=== PATIENT | female | born 1950 | race African-American/Black ===

== ENCOUNTER 2018-07-08 19:04 | Inpatient (IN) | payer OTHER ==
[~2018-07-08] VITALS: Ht 167.6 cm; Wt 86.0 kg
[2018-07-08 19:04] VITALS: BP 211/100
[~2018-07-08 19:04] MED LIST: ASPIRIN325 PO; B-COMPLEX-VITA1 EACH PO; BENZONATATE100 MG PO; CALCIUM OYSTER500 MG PO; FISH OIL 1,0001 EAC5 PO; HORMONE PATCH; LISINOPRIL20 MG PO; LISINOPRIL40 MG PO; OSELB75 PO; PREDNISONE 20 M20 M1 PO; PRILOSEC 20 MG20 MG PO; T3; TUSSIONEX PENN473 ML PO; TYLENOL COLD C1 EAC1; VALIUM2 MG PO; VITAMIN B-12250 MCG PO; VITAMIN C120 GM PO; VITAMIN D 5050000 I1; ZANTAC 150MG T150 M1 PO; [UNRECOGNIZED DRUG - OTHER] PO
[2018-07-08 19:55] LABS: ABSOLUTE NEUTROPHILS 1.9 thou/uL (1.4-8.2); BASOPHILS 0.7 % (0.0-2.0); EOSINOPHILS 2.5 % (0.0-3.0); HEMATOCRIT 38.7 % (37.0-47.0); HEMOGLOBIN 13.2 gm/dL (12.0-15.0); LYMPHOCYTES 50.6 % (24.0-44.0); MCH 33.2 pg (26.0-34.0); MCHC 34.2 g/dL (28.0-37.0); MCV 97.2 fL (80.0-100.0); PLATELET COUNT 171 thou/uL (150-400); POLYS 38.2 % (36.0-66.0); RBC 3.98 mil/uL (4.20-5.00); RDW 14.3 % (10.5-14.5); WBC 5.1 thou/uL (4.0-11.0)
[2018-07-08 19:59] LABS: ANION GAP 11 mmol/L (7-16); BUN 12 mg/dL (7-18); CALCIUM 9.2 mg/dL (8.5-10.1); CHLORIDE 105 mmol/L (98-107); CO2 26 mmol/L (21-32); CREATININE 0.9 mg/dL (0.6-1.0); GLUCOSE 95 mg/dL (74-106); POTASSIUM 3.9 mmol/L (3.5-5.1); SODIUM 142 mmol/L (136-145)
[2018-07-08 20:04] LABS: MAGNESIUM 1.9 mg/dL (1.8-2.4); SGOT 22 U/L (15-37); SGPT 24 U/L (30-65); TOTAL BILIRUBIN 0.5 mg/dL (<0.1-1.0); TOTAL PROTEIN 7.8 g/dL (6.4-8.2); TROPONIN-I <0.06 ng/mL (<0.06)
[2018-07-08 20:31] VITALS: BP 192/94
[2018-07-08 21:20] LABS: URINE BILIRUBIN NEGATIVE (Negative); URINE BLOOD TRACE (Negative); URINE CLARITY CLEAR; URINE COLOR YELLOW; URINE GLUCOSE-RANDOM* NEGATIVE (Negative); URINE KETONES TRACE (Negative); URINE LEUKOCYTES-REFLEX NEGATIVE (Negative); URINE NITRITE-REFLEX NEGATIVE (Negative); URINE PROTEIN (DIPSTICK) NEGATIVE (Negative); URINE UROBILINOGEN 0.2 E.U./dl (0.2-1.0)
[2018-07-08 21:28] VITALS: BP 192/94
[2018-07-08 21:46] VITALS: BP 190/88
[2018-07-08] MEDS ORDERED: PREDNISONE 20 M20 MG PO (22:00)
[2018-07-08] MEDS ORDERED: PRINIVIL5 MG PO (22:01)
[2018-07-08] MEDS ORDERED: ZYRTEC10 MG PO (22:02)
[2018-07-08] MEDS ORDERED: ESTRADIOL 1 MG T1 M1 TRANSDERM (22:05)
[2018-07-08] MEDS ORDERED: MEDROXYPROGESTER5 MG PO (22:06)
[2018-07-08] MEDS ORDERED: VENTOLIN HFA 1818 GM INH (22:09)
[2018-07-08] MEDS ORDERED: CARDIO OMEGA B1 EACH PO (22:11)
[2018-07-09] VITALS (7 sets, daily range): BP systolic 107–170; BP diastolic 33–90
--- NOTE | 2018-07-09 01:07 | NUR ---
PT CAME TO THE DESK REGARDING PTS C/O NAUSEA AND NEEDING TO USE THE RESTROOM. UPON APPROACH PT REPORTED FEELING NAUSEATED. SHE STATES SHE FELT THE NAUSEA, THEN FELT WARM AND FLUSHED/HOT. SHE THEN NOTICED THAT THE RIGHT SIDE OF HER FACE WAS TINGLING THAT EXTENDED INTO BOTH HER LIPS. ALSO THAT THERE WAS TINGLING DOWN BOTH ARMS ALL THE WAY DOWN TO THE FINGERS. ZOFRAN WAS GIVEN. PT WAS ABLE TO GET OUT OF BED WITH ONLY STANDBY ASSIST TO THE BATHROOM. SHE DENIED ANY DIZZINESS OR LIGHTHEADEDNESS WHEN UP. GAIT WAS STEADY. ZOFRAN IV WAS GIVEN PRIOR TO GETTING OUT OF BED. PT REPORTED ON THE WAY BACK TO BED THAT THE TINGLING IN HER ARMS WAS SUBSIDING AND THAT SHE ONLY HAD AN "ITCHING" IN BOTH HANDS. ALSO, THE TINGLING HAD CEASED IN HER LIPS AND WAS ISOLATED TO THE RIGHT SIDE OF HER FACE. PERHAPS COINCIDENTALLY, PT REPORTS THAT THE NAUSEA WAS SUBSIDING AT THE SAME TIME.
--- NOTE | 2018-07-09 04:49 | NUR ---
PT ARRIVED VIA BED FROM ER. PT UP OFF CART, AMBULATED WITH STEADY GAIT TO THE BED WITH STANDBY ASSIST. PT REPORTING "PRESSURE" ON THE RIGHT SIDE OF HER FACE AND DOWN THE RIGHT SIDE OF THE NECK. THIS AM, PT REPORTING THIS PRESSURE 4/10.
[2018-07-09 04:50] LABS: HEMATOCRIT 36.5 % (37.0-47.0); MCH 32.1 pg (26.0-34.0); MCHC 32.9 g/dL (28.0-37.0); MCV 97.8 fL (80.0-100.0); RBC 3.74 mil/uL (4.20-5.00); RDW 14.1 % (10.5-14.5); WBC 4.4 thou/uL (4.0-11.0)
[2018-07-09 04:51] LABS: ANION GAP 8 mmol/L (7-16); BUN 12 mg/dL (7-18); CALCIUM 8.8 mg/dL (8.5-10.1); CHLORIDE 106 mmol/L (98-107); CHOLESTEROL 249 mg/dL (<200); CO2 26 mmol/L (21-32); CREATININE 0.9 mg/dL (0.6-1.0); GLUCOSE 83 mg/dL (74-106); HDL CHOLESTEROL 65 mg/dL (>40); LDL CHOLESTEROL 179 mg/dL (<100); POTASSIUM 3.9 mmol/L (3.5-5.1); SODIUM 140 mmol/L (136-145); TC:HDL 3.8 Ratio (Not establshd); TRIGLYCERIDE 27 mg/dL (<150); VLDL 5 mg/dL (<40)
[2018-07-09 04:54] LABS: SERUM ASSESSMENT Clear
--- NOTE | 2018-07-09 08:30 | EKG ---
[place] [address] [facility] [place] [address] ELECTROCARDIOGRAM REPORT Name: LETHA LEÓN Room #: 359-P ADM IN M.R.#: [id number] ������������������ Admission: 07/08/18 ������������������ Attend Phys: Valentino Dumas MD Discharge: ������������������ Date of : 48 Report #: [id number] ����������������������������������������������������������������� [id number] THIS REPORT FOR: //name// [facility] ED Test Date: 2018-07-08 Test Time: 19:52:34 Pat Name: LETHA LEÓN Department: Room: 359 Gender: F Fruit Inspector: claire : 1950 Requested By: Gee Marin Order Number: [id number] MD: Papo Rodgers Measurements Intervals [facility] Rate: 65 P: 37 [place]: 163 QRS: -2 QRSD: 93 T: 25 QT: 470 QTc: 489 Interpretive Statements Sinus rhythm Borderline prolonged QT interval Compared to ECG 08/04/2012 03:43:35 No significant changes Electronically Signed On 07-09-2018 8:29:50 [employer] by Papo Rodgers [email or web address] ��������������������������������������������� <ELECTRONICALLY SIGNED> ���������������������������������������� By: Papo Rodgers MD, [facility] ��������������������������������������������� 07/09/18828 51 51 Papo Rodgers MD, FACC /EPI
[2018-07-09] MEDS ORDERED: ASPIR 8181 MG PO (09:53)
--- NOTE | 2018-07-09 12:13 | NUR ---
ASSESSMENT: CM REVIEWED CHART AND MET WITH PATIENT AT THE BEDSIDE. PT IS ALERT AND ORIENTED X4. PT LIVES AT HOME WITH HER IN A HOUSE. PT REPORTS ONE STEP TO ENTER THE HOME AND ABOUT 14 STEPS WITH HANDRAILS TO HER BEDROOM. PT REPORTS SHE IS FULLY INDEPENDENT WITH ADLS AND AMBULATION. PT HAS NOT HAD HH IN THE PAST NOR BEEN TO SNF/REHAB. CM DISCUSSED ROLE. PT IS LIKELY DISCHARGE TODAY AND REPORTS HAVING NO NEEDS.
--- NOTE | 2018-07-09 15:00 | NUR ---
Assumed care of patient at 0700. Vitals have been stable today. Denies pain. Still feels some "pressure" to right side of face, but states has improved since admission and has been improving throughout the day. Denies any numbness. No other signs and symptoms throughout day. NIH 0. Alert and oriented x4. Pleasant. Carotids and MRI head ordered today - appear negative. Attempted to get ahold of Dr. Barbosa to notify of results but no response. Dr. Guerra ordered Echo and MRA [place] [facility] [place]. Up with SBA. Fall precautions in place. Bilateral SCDs while in bed. Spouse at bedside, kept up to date on POC. Progressing towards POC. Will continue to monitor.
[2018-07-10 00:33] LABS: GLYCOHEMOGLOBIN (HGB A1C) 5.3 % (4.8-5.6)
[2018-07-10 03:45] VITALS: BP 116/74
--- NOTE | 2018-07-10 04:12 | NUR ---
Pt. slept fair during the night. No change in neuro status and NIH = 0. Mild right sided facial pressure/discomfort which she stated has gotten better. Up ad trena in room with steady gait. BP stable. Will continue to monitor.
[2018-07-10 07:00] VITALS: BP 119/79
[2018-07-10 10:28] VITALS: BP 119/79
[2018-07-10] MEDS ORDERED: LIPITOR 20 MG T20 M1 PO (15:28)
--- NOTE | 2018-07-10 16:06 | NUR ---
Assumed care of patient at 0700. Vitals have been stable. Alert and oriented x4. Still with some slight right facial "pressure" but patient reports continue to improve. No other signs and symptoms. NIH remains 0. Discharge orders received. Reviewed with patient and spouse at bedside. Verbalize understanding. IV and telemetry discontinued. Patient was to be transported to private vehicle but Dr. Barbosa called, stating he spoke with Dr. Guerra, who wishes to order a CTA head / neck to further evaluate findings of MRA. Patient is allergic to contrast dye - states in the past, she remembers having a rash and some swelling at the IV site after contrast was administered. To follow protocol for contrast allergy. New IV started; Benadryl and Solu-Medrol administered per protocol. Patient taken to CTA. No reactions noted from contrast dye. Results called to Dr. Guerra, who states patient is safe to discharge from his stand-point, but will want patient to DC home on a statin. Updated Dr. Barbosa, who asks HOLA Ordoñez, to write a prescription for patient. Prescription for Lipitor written. New prescription given to patient, along with medication information and to follow up with her primary doctor as soon as possible and to have repeat cholesterol levels drawn within 6-12 months, or as directed by primary doctor. Patient verbalizes understanding. IV and telemetry discontinued. Belongings gathered. Transported to private vehicle via wheelchair to discharge home.
--- NOTE | 2018-07-14 13:50 | HC ---
[facility] [place] [address] CONSULTATION Name: LETHA LEÓN Room #: 359-P [facility] IN M.R.#: [id number] Admission: 07/08/18 ������������������ Attend Phys: Barbara Barbosa Discharge: 07/10/18 ������������������ Date of : 48 Report #: [id number] THIS REPORT FOR: //name// CC: Tegan Brito Tahir Charlie Avelar Jeffyanasatsia DATE OF SERVICE: 07/09/2018 HISTORY OF PRESENT ILLNESS: This is a 67-year-old female patient who was evaluated by me for some nonspecific symptoms. She is having some numbness on the right side of the face. It is going on for a month. It comes and goes. It started spontaneously without any trauma. She said she did not have this kind of symptom before. I reviewed the records in the computer. It looks like she also had some chest pain according to the Emergency Room record. She is not complaining of any chest pain to me. She has hypertension. Hypertension is intermittent. Her blood pressure was very elevated when she came in. Her symptoms in fact has improved. REVIEW OF SYSTEMS: Indicate a 14-point review of systems was carried out. It is positive for hypertension and she has the above described symptoms, otherwise she is healthy. She works from home. She denies any new eyes, ENT, respiratory, GI, , musculoskeletal, constitutional, dermatological, hematological, psychiatric, throat or allergic symptom associated with present symptomatology except as described above. PAST MEDICAL HISTORY: Negative for TIA or stroke. FAMILY HISTORY: Negative for any early age stroke. SOCIAL HISTORY: She drinks alcohol very rarely, but does not smoke. PHYSICAL EXAMINATION: Indicate she is alert, responsive, able to follow simple and complex command. Her speech, concentration, fund of knowledge and memory is at her baseline. Cranial nerve examination 2-12 looks unremarkable. She has symmetrical strength, sensation, reflexes and tone in all 4 extremities. There is no cerebellar sign. There is no papilledema. There is no carotid bruit. She is a well-developed individual who does not have any dysmorphic features of eyes, ears and face. Her vision and hearing looks adequate. Her pulses are palpable. She has no edema, cyanosis or jaundice. She is able to walk as I understand from her. Cardiac examination is unremarkable. No respiratory difficulty or rhonchi. She has no thyroid mass. Her hearing and vision look adequate. Blood pressure is 150/90, respirations 20, pulse is 77, temperature is 98.2. LABORATORY DATA: White count is 4.4. Sodium is normal. [place] [address] CONSULTATION Name: LETHA LEÓN [facility] IN M.R.#: [id number] Admission: 07/08/18 ������������������ Attend Phys: Barbara Barbosa Discharge: 07/10/18 ������������������ Date of : 48 Report #: [id number] did have an MRI of the brain, which was unremarkable. She had a carotid Doppler, which was reviewed, which did not show any hemodynamically significant stenosis. IMPRESSION: Unusual symptom, but most likely related to hypertensive urgency. She also has dyslipidemia, which predisposes her to stroke, but MRI does not show any stroke. RECOMMENDATIONS: 1. Main thing is going to be the management of hypertension and hyperlipidemia by yourself. 2. She can continue on 81 mg aspirin. 3. She thinks she is going home today, so as an outpatient she can have a sed rate and some basic collagen vascular workup done by her primary. 4. I will check an MRA to exclude any outside chance of aneurysms or any other pathology, and because of that symptoms, I will suggest an echocardiogram to complete the workup. Otherwise, I do not think I have anything specific to add. Thank you very much for this referral. If you have any question, please feel free to contact me. ��������������������������������������������� <ELECTRONICALLY SIGNED> ���������������������������������������� By: Tahir Guerra MD ��������������������������������������������� 07/14/18 1350 [id number] [id number] Tahir Guerra MD /nt
== END 2018-07-10 15:45 | disposition home or self-care (01) | DRG 69 ==
LOC: ER 19:04 → 3W 20:16 → EROBS 20:16 → 3W 21:29 → ENTRNSPT 07-10 10:39 → EDTRNSPTSTS 07-10 10:42 → 3W 07-10 15:45
PROVIDERS: Emergency Medicine; Nurse Practitioner Family; ADMIT Hospitalist
DX: G45.9 Transient cerebral ischemic attack, unspecified (principal); I16.0 Hypertensive urgency; E78.5 Hyperlipidemia, unspecified; K21.9 Gastro-esophageal reflux disease without esophagitis; I10 Essential (primary) hypertension; J45.909 Unspecified asthma, uncomplicated; Z88.8 Allergy status to other drugs, medicaments and biological substances; Z91.040 Latex allergy status; Z79.82 Long term (current) use of aspirin; Z79.899 Other long term (current) drug therapy
CPT/HCPCS: 10879